=== PATIENT | male | born 1970 | race Caucasian/White ===

== ENCOUNTER → 2016-05-12 | Outpatient (CLI) | payer BC | END | disposition home or self-care (01) | LOC: C.PATHSPEC 17:44 | PROVIDERS: ATTEND Podiatrist Primary Podiatric Medicine | DX: B07.0 Plantar wart (principal) ==

== ENCOUNTER → 2017-04-18 | Outpatient (CLI) | payer BC | END | disposition home or self-care (01) | LOC: C.LAB 09:37 | PROVIDERS: ATTEND Nutritionist | DX: R53.83 Other fatigue (principal) ==